=== PATIENT | female | born 1940 | race African-American/Black ===

== ENCOUNTER 2018-09-24 10:50 | Day surgery (SDC) | payer BC, MEDICARE ==
[2018-09-24] VITALS (8 sets, daily range): BP systolic 136–156; BP diastolic 60–75
[~2018-09-24] VITALS: Ht 182.9 cm; Wt 72.6 kg
--- NOTE | 2018-09-24 07:30 | Pre-Procedure Note/Attestation ---
Pre-Procedure Note/Attestation Complete Prior to Procedure Planned Procedure: left - Repair of wound dehiscence, left eye Indications for Procedure Pre-Operative Diagnosis: Dehiscence of DSEK wound, left eye Attestation I attest that I discussed the nature of the procedure; its benefits; risks and complications; and alternatives (and the risks and benefits of such alternatives ), prior to the procedure, with the patient (or the patient's legal representative personal service). I attest that, if there was a reasonable possibility of needing a blood transfusion, the patient (or the patient's legal representative personal service) was given the [facility] standardized written summary, pursuant to the [place] Julia Blood Safety Act ([place] Health and Safety Code # 1645, as amended). I attest that I re-evaluated the patient just prior to the surgery and that there has been no change in the patient's H&P, except as documented below: Florencio Sanderson MD Sep 24, 2018 07:30
[~2018-09-24 10:50] MED LIST: Midazolam 2mg/2ml Inj ONE
[2018-09-24] MEDS ORDERED: ATENOLOL100 MG ORAL (11:56)
[2018-09-24] MEDS ORDERED: ATORVASTATIN CA40 MG ORAL (11:56)
[2018-09-24] MEDS ORDERED: GLIMEPIRIDE4 MG ORAL (11:56)
[2018-09-24] MEDS ORDERED: OMEPRAZOLE40 M1 ORAL (11:56)
[2018-09-24] MEDS ORDERED: AMLODIPINE BESYL5 MG ORAL (11:56)
[2018-09-24] MEDS ORDERED: JANUVIA25 MG ORAL (11:56)
[2018-09-24] MEDS ORDERED: METFORMIN HCL500 M1 ORAL (11:56)
[2018-09-24] MEDS ORDERED: LOSARTAN POTASS25 MG ORAL (11:56)
[2018-09-24] MEDS ORDERED: ASPIRIN-LOW81 MG ORAL (11:56)
[2018-09-24] MEDS ORDERED: FLUOXETINE HCL10 MG ORAL (11:56)
[2018-09-24] MEDS ORDERED: VITAMIN C1000 M2 PO (11:58)
[2018-09-24] MEDS ORDERED: VITAMIN D1000 UNI1 ORAL (11:58)
[2018-09-24] MEDS ORDERED: Akten 3.5% 1ml Btl ONE (12:13)
[2018-09-24] MEDS ORDERED: Tobradex Opth Susp 2.5ml ONE (12:13)
[2018-09-24] MEDS ORDERED: Vigamox Opth Soln 3ml ONE (12:13)
[2018-09-24] MEDS: Akten 3.5% 1ml Btl LEFT EYE SCH ×3 (12:14→12:26)
[2018-09-24] MEDS: Tobradex Opth Susp 2.5ml LEFT EYE SCH ×3 (12:15→12:26)
[2018-09-24] MEDS: Vigamox Opth Soln 3ml LEFT EYE SCH ×3 (12:15→12:26)
[2018-09-24] MEDS ORDERED: LR 1000ml 1,000 ML IVLG SCH (13:28)
[2018-09-24] MEDS ORDERED: oxyCODONE HCL/Acetaminophen 5/325mg ORAL PRN (13:30)
[2018-09-24] MEDS ORDERED: Midazolam 2mg/2ml Inj IVP PRN (13:30)
[2018-09-24] MEDS ORDERED: Meperidine 50mg/ml Inj(FOR RIGORS ONLY) IVP PRN (13:30)
[2018-09-24] MEDS ORDERED: Atropine Sulfate 0.4mg/ml inj IVP PRN (13:30)
[2018-09-24] MEDS ORDERED: Metoclopramide 10mg/2ml Inj IVP PRN (13:30)
[2018-09-24] MEDS ORDERED: DiphenhydrAMINE 50mg/ml Inj IVP PRN (13:30)
[2018-09-24] MEDS ORDERED: HYDROcodone/Acetamin 7.5/325 tab ORAL PRN (13:30)
[2018-09-24] MEDS ORDERED: Labetalol 5mg/ml 20ml vial IV PRN (13:30)
[2018-09-24] MEDS ORDERED: fentaNYL 100 mcg/2 mL IV PRN (13:30)
[2018-09-24] MEDS ORDERED: Ketorolac 30mg Inj IV PRN ×2 (13:30)
[2018-09-24] MEDS ORDERED: Hydromorphone 0.5mg/0.5ml inj IVP PRN (13:30)
[2018-09-24] MEDS ORDERED: LORazepam Inj 2mg/ml 1ml IV PRN (13:30)
[2018-09-24] MEDS ORDERED: HYDROcodone/Acetamin 5/325 tab ORAL PRN (13:30)
--- NOTE | 2018-09-24 13:34 | Anethesia Preoperative Eval ---
Anesthesia Pre-op PMH/ROS General Date of Evaluation: Sep 24, 2018 Time of Evaluation: 13:52 Anesthesiologist: Joe ASA Score: ASA 3 Mallampati Score Class I : Soft palate, uvula, fauces, pillars visible Class II: Soft palate, uvula, fauces visible Class III: Soft palate, base of uvula visible Class IV: Only hard plate visible Mallampati Classification: Class II Surgeon: Kin Diagnosis: Wound Dehiscence OS Surgical Procedure: Repair Wound Dehiscense OS Anesthesia History: none Family History: no anesthesia problems Allergies: Coded Allergies: LIRAGLUTIDE (Verified Allergy, Intermediate, 09/24/18) SKIN RASH Medications: see eMAR Patient NPO?: Yes Past Medical History Cardiovascular: Reports: HTN, other - HL Gastrointestinal/Genitourinary: Reports: GERD, CRI Neurologic/Psychiatric: Reports: depression/anxiety Endocrine: Reports: DM HEENT: Reports: cataract (L), cataract (R), glaucoma Anesthesia Pre-op Phys. Exam Physician Exam Last Vital Signs Date Time Temp Pulse Resp B/P (MAP) Pulse Ox O2 Delivery O2 Flow Rate FiO2 09/24/18 12:05 98.4 57 20 152/74 98 Room Air Constitutional: NAD Neurologic: CN 2-12 intact Cardiovascular: RRR Respiratory: CTA Gastrointestinal: S/NT/ND Airway Exam Mallampati Score: Class II MO: full ROM: limited Teeth: missing, intact Anesthesia Pre-op A/P Risk Assessment & Plan Assessment: ASA 3 Plan: GA, TIVA Status Change Before Surgery: No Zaid Diaz MD Sep 24, 2018 13:34
[2018-09-24] MEDS ORDERED: Maxitrol Opth Oint 3.5gm ONE (13:51)
[2018-09-24] MEDS ORDERED: Lidocaine 4% Amp ONE (13:51)
[2018-09-24] MEDS ORDERED: EPINEPHrine 1mg/1ml Amp ONE (13:51)
[2018-09-24] MEDS ORDERED: BSS 15ml BTL ONE (13:51)
[2018-09-24] MEDS ORDERED: Povidone-Iodine 5% opth solution ONE (13:52)
[2018-09-24] MEDS ORDERED: NS Irrig 1000ml ONE (14:00)
[2018-09-24] MEDS ORDERED: Lidocaine 1% MPF 10mg/ml 5ml ONE (14:00)
[2018-09-24] MEDS ORDERED: Propofol 200mg/20ml IV ONE (14:00)
[2018-09-24] MEDS ORDERED: Sterile Water Irrig 1000ml IRRIG ONE (14:00)
[2018-09-24] MEDS ORDERED: LR 1000ml ONE (14:00)
--- NOTE | 2018-09-24 14:15 | Immediate Post-Op Evaluation ---
Immediate Post-Op Evalulation Immediate Post-Op Evalulation Procedure: Repair Wound Dehiscence OS Date of Evaluation: Sep 24, 2018 Time of Evaluation: 15:02 IV Fluids: 900 LR Blood Products: 0 Estimated Blood Loss: 3 Urinary Output: 0 Blood Pressure Systolic: 154 Blood Pressure Diastolic: 75 Pulse Rate: 61 Respiratory Rate: 16 O2 Sat by Pulse Oximetry: 100 Temperature (Fahrenheit): 97 Pain Score (1-10): 1 Nausea: No Vomiting: No Complications 0 Patient Status: awake, reacts, patent, none Hydration Status: adequate Zaid Diaz MD Sep 24, 2018 14:15
[2018-09-24] MEDS ORDERED: Tetracaine 0.5% Opth 4ml Soln ONE (14:16)
--- NOTE | 2018-09-24 14:16 | 48 Hour Post Anesthesia Eval ---
Post Anesthesia Evaluation Procedure: Repair Wound Dehiscence OS Date of Evaluation: Sep 24, 2018 Time of Evaluation: 17:11 Blood Pressure Systolic: 152 0: 78 Pulse Rate: 63 Respiratory Rate: 18 Temperature (Fahrenheit): 97.6 O2 Sat by Pulse Oximetry: 100 Airway: patent Nausea: No Vomiting: No Pain Intensity: 1 Hydration Status: adequate Cardiopulmonary Status: Stable Mental Status/LOC: patient returned to baseline Follow-up Care/Observations: 0 Post-Anesthesia Complications: 0 Follow-up care needed: ready to discharge Zaid Diaz MD Sep 24, 2018 14:16
--- NOTE | 2018-09-24 14:53 | Brief Operative Note ---
Immediate Post Operative Note Operative Note Pre-op Diagnosis: Dehiscence of DSEK wound, left eye Procedure: Repair of wound dehiscence, OS (rebubble DSEK graft) Post-op Diagnosis: same as pre-op Surgeon: Jhonathan Sanderson MD MS Shipping Assistant: None Anesthesiologist: Janie Diaz MD Anesthesia: local, MAC Specimen: none Complications: none Condition: unstable Fluids: see chart Implant(s) used?: No Florencio Sanderson MD Sep 24, 2018 14:53
--- NOTE | 2018-09-25 01:45 | Operative Note - Dictated ---
DATE OF OPERATION: 09/24/2018 SURGEON: Florencio Sanderson M.D. [employer] SURGEON: None. ANESTHESIOLOGIST: Zaid Diaz M.D. ANESTHESIA: Local/standby/monitored anesthesia care. PREOPERATIVE DIAGNOSIS: Wound dehiscence in DSEK graft, left eye. POSTOPERATIVE DIAGNOSIS: Wound dehiscence in DSEK graft, left eye. PROCEDURE: Repair of wound dehiscence, left eye with rebubbling of DSEK graft, left eye. SPECIMENS: None. COMPLICATIONS: None. INDICATIONS FOR SURGERY: The patient is status post DSEK and on postop day #1, the DSEK graft was 360 degrees attached. Upon follow-up exam approximately one week later, the inferior 2/3rd of the graft was slightly from the recipient stroma versus superior third was still attached. The patient understands the risks of surgery including infection, bleeding, need for further surgery, loss of vision, no improvement in vision, loss of the eye, loss of life, glaucoma, retinal detachment, she understands these risks and wants to proceed with surgery. FINDINGS: The inferior 2/3rd of the graft was slightly from the recipient stroma. OPERATIVE NOTE: After informed consent was obtained, the patient was brought into the operating room and placed in supine position. Cardiac and respiratory monitors were attached. A time-out was performed and all criteria were met and everyone in the room agreed. The left eye was then draped and prepped in sterile manner for ocular surgery. A lid speculum was placed in the eye. Tetracaine drops were applied to the eye. A super sharp blade was used to create a paracentesis at approximately 8 o'clock. Shugarcaine was injected into the anterior chamber. Air bubble was injected into the anterior chamber for 100% fill. This was left in place for approximately 15 minutes and during that time the corneal surface was smoothed with a curved spatula. This was done numerous times to try remove any type of interface fluid. After approximately 15 minutes, the air bubbles were slightly removed and replaced with BSS . The wounds were checked and found to be Ramesh negative. The lid speculum and drapes were removed were removed from the eye and drops of moxifloxacin and TobraDex were applied to the eye followed by Maxitrol ointment and then a shield. The patient tolerated the procedure well and left the operating room awake, alert, and in stable condition. Florencio Sabina Sanderson DR: Louise JOB#: [id number] CC:
== END 2018-09-24 16:05 | disposition home or self-care (01) ==
LOC: SUR 10:50
DX: T81.30XA Disruption of wound, unspecified, initial encounter (principal); X58.XXXA Exposure to other specified factors, initial encounter; Y92.9 Unspecified place or not applicable; I12.9 Hypertensive chronic kidney disease with stage 1 through stage 4 chronic kidney disease, or unspecified chronic kidney disease; E11.22 Type 2 diabetes mellitus with diabetic chronic kidney disease; N18.3 Chronic kidney disease, stage 3 (moderate); Z79.899 Other long term (current) drug therapy; E78.5 Hyperlipidemia, unspecified; Z87.891 Personal history of nicotine dependence; E11.40 Type 2 diabetes mellitus with diabetic neuropathy, unspecified; K21.9 Gastro-esophageal reflux disease without esophagitis; Z88.8 Allergy status to other drugs, medicaments and biological substances; F32.9 Major depressive disorder, single episode, unspecified; F41.9 Anxiety disorder, unspecified
CPT/HCPCS: 66020; 82962; J0171; J2250; J2704; 94003; 94150